=== PATIENT | female | born 1990 | race Caucasian/White ===

== ENCOUNTER 2016-06-25 08:40 | Outpatient (CLI) | payer OTHER ==
[~2016-06-25 08:40] MED LIST: OXYCODONE/ACETA1 TA1 PO; PERCOCET1 TA1 PO; PRILOSEC20 MG PO; TRAZODONE HCL100 MG PO; ZOLOFT50 MG PO
== END 2016-06-25 23:00 ==
LOC: LAB SRH 08:40
DX: R73.02 Impaired glucose tolerance (oral) (principal)
CPT/HCPCS: 90074; 92652

== ENCOUNTER 2016-06-29 16:21 | Outpatient (CLI) | payer OTHER | END 2016-06-29 23:00 | LOC: LAB SRH 16:21 | DX: R73.02 Impaired glucose tolerance (oral) (principal) | CPT/HCPCS: 90074; 91282; 92668; 92670 ==

== ENCOUNTER 2016-08-03 16:17 | Inpatient (IN) | payer OTHER ==
[2016-08-04 03:40] VITALS: BP 113/56
[2016-08-04 06:12] VITALS: BP 122/61
[2016-08-04 09:42] VITALS: BP 122/58
[2016-08-04 16:30] VITALS: BP 118/76
[2016-08-05 08:05] VITALS: BP 108/66
--- NOTE | 2016-08-05 10:30 | Provider's Discharge Care Plan ---
Problem, Goal, Plan Problem List 1. normal course Goals: Improve disease control Instructions: Follow up as needed 2. Term
--- NOTE | 2016-08-05 10:30 | Provider's Discharge Care Plan ---
Problem, Goal, Plan Problem List 1. normal course Goals: Improve disease control Instructions: Follow up as needed 2. Term
== END 2016-08-05 10:50 | disposition home or self-care (01) | DRG 775 ==
LOC: OBC SRH 16:17 → OB SRH 16:19 → OBC SRH 16:55 → OB SRH 17:15
PROVIDERS: ADMIT Obstetrics & Gynecology
PROC: 10E0XZZ Delivery of Products of Conception, External Approach (ICD-10-PCS; principal; 2016-08-04)
DX: O99.02 Anemia complicating childbirth (principal); D50.9 Iron deficiency anemia, unspecified; Z37.0 Single live birth; Z3A.38 38 weeks gestation of pregnancy
CPT/HCPCS: 40011; 83475; 90074; 91162; 91163; 95059